=== PATIENT | female | born 2000 | race African-American/Black ===

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

== ENCOUNTER 2023-12-15 05:32 | Inpatient (IN) | payer MEDICAID ==
[2023-12-15] MEDS ORDERED: Sodium Chloride 0.9% 10 ML Syringe FLUSH PRN (06:01)
[2023-12-15] MEDS ORDERED: Sodium Chloride 0.9% 20 ML SDV IV PRN (06:01)
[2023-12-15] MEDS ORDERED: Sodium Chloride 0.9% 2.5 ML Syringe FLUSH PRN (06:01)
[2023-12-15] MEDS ORDERED: Oxytocin/0.9 % Sodium Chloride 30 UNIT/500 ML BAG IV SCH ×2 (06:15→19:30)
[2023-12-15] MEDS: Lactated Ringers 1,000 ML IV SCH (06:15)
[2023-12-15 06:36] LABS: HEMATOCRIT 40.1 % (37.0-47.0); HEMOGLOBIN 13.9 g/dL (12.0-16.0); MEAN CORPUSCULAR HEMOGLOBIN 31.2 pg (28.0-32.0); MEAN CORPUSCULAR HGB CONC 34.7 g/dL (32.0-36.0); MEAN CORPUSCULAR VOLUME 89.9 fL (83.0-99.0); MEAN PLATELET VOLUME 11.6 fL (9.4-12.3); PLATELET COUNT,PLT 182 K/uL (150-400); RED BLOOD CELL COUNT 4.46 M/uL (4.10-5.30); WHITE BLOOD CELL COUNT,WBC 5.97 K/uL (3.9-11.3)
[2023-12-15] MEDS ORDERED: fentaNYL 100 MCG/2 ML SDV ONE (06:54)
[2023-12-15] MEDS ORDERED: Ropivacaine 0.5% 5 MG/ML 30 ML SDV ONE (06:54)
[2023-12-15] MEDS ORDERED: Ketorolac 30 MG/ML SDV ONE (06:54)
[2023-12-15] MEDS ORDERED: Bupivacaine 0.25% 30 ML SDV ONE (06:54)
[2023-12-15] MEDS ORDERED: ceFAZolin 1 GM Vial ONE (06:54)
[2023-12-15] MEDS ORDERED: Oxytocin 10 Units/1 ML SDV ONE (06:54)
[2023-12-15] MEDS ORDERED: Ondansetron 4 MG/2 ML SDV ONE (06:54)
[2023-12-15] MEDS ORDERED: EPINEPHrine 1 MG/1 ML Amp ONE (06:54)
[2023-12-15] MEDS ORDERED: Morphine PF 10 MG/10 ML SDV ONE (06:55)
[2023-12-15] MEDS ORDERED: fentaNYL 100 MCG/2 ML SDV IVPUSH PRN (07:06)
[2023-12-15] MEDS ORDERED: droPERidol 5 MG/2 ML SDV IVPUSH PRN (07:06)
[2023-12-15] MEDS ORDERED: Metoclopramide 10 MG/2 ML SDV IVPUSH PRN (07:06)
[2023-12-15] MEDS ORDERED: Naloxone 0.4 MG/ML SDV IVPUSH PRN (07:06)
[2023-12-15] MEDS ORDERED: Ondansetron 4 MG/2 ML SDV IVPUSH PRN ×3 (07:06→19:22)
[2023-12-15] MEDS ORDERED: Acetaminophen/oxyCODONE 325-5 MG Tab PO PRN (07:06)
[2023-12-15] MEDS ORDERED: fentaNYL 50 MCG/ML SDV IVPUSH PRN (07:06)
[2023-12-15] MEDS ORDERED: ePHEDrine 50 MG/ML SDV IVPUSH PRN (07:06)
[2023-12-15] MEDS ORDERED: HYDROmorphone 1 MG/ML Syringe IVPUSH PRN (07:06)
[2023-12-15] MEDS ORDERED: Morphine 2 MG/ML SYRINGE IVPUSH PRN (07:06)
[2023-12-15] MEDS ORDERED: Albuterol 0.083% 2.5 MG/3 ML Neb Soln NEB PRN (07:06)
[2023-12-15] MEDS: ceFAZolin 2 GM in Sodium Chloride 0.9% 50 ML IV ONE (07:10)
[2023-12-15] MEDS: Citric Acid/Sodium Citrate Solution 30 ML Cup PO ONE (07:10)
[2023-12-15 08:45] LABS: AMPHETAMINES SCREEN, URINE NEGATIVE (CUTOFF=500); BARBITURATE SCREEN,URINE NEGATIVE (CUTOFF=200); BENZODIAZEPINES SCREEN,URINE NEGATIVE (CUTOFF=150); BUPRENORPHINE SCREEN,URINE NEGATIVE (CUTOFF=10); METHADONE SCREEN, URINE NEGATIVE (CUTOFF=200); METHAMPHETAMINES SCREEN, URINE NEGATIVE (CUTOFF=500); OXYCODONE SCREEN,URINE NEGATIVE (CUT0FF=100); PCP SCREEN,URINE NEGATIVE (CUTOFF=25); THC SCREEN,URINE 20 NG/ML NEGATIVE (CUTOFF=50)
[2023-12-15] MEDS ORDERED: Phenylephrine 1% 10 MG/ML SDV ONE (08:54)
[2023-12-15] MEDS: Acetaminophen 1,000 MG in Premix Bag 1 BAG IV SCH (10:05)
[2023-12-15] MEDS: diphenhydrAMINE 50 MG/ML SDV IVPUSH PRN (12:09)
[2023-12-15] MEDS: Ketorolac 30 MG/ML SDV IVPUSH SCH (16:04)
[2023-12-15] MEDS ORDERED: Lanolin 100% Cream 7 GM Tube TOP PRN (19:22)
[2023-12-15] MEDS ORDERED: Bisacodyl 10 MG Supp RECTAL PRN (19:22)
[2023-12-15] MEDS ORDERED: Methylergonovine 0.2 MG/1 ML Amp IM PRN (19:22)
[2023-12-15] MEDS ORDERED: Misoprostol 200 MCG Tab RECTAL PRN (19:22)
[2023-12-15] MEDS ORDERED: Oxytocin 10 Units/1 ML SDV IM PRN (19:22)
[2023-12-15] MEDS ORDERED: diphenhydrAMINE 50 MG/ML SDV IVPUSH PRN (19:22)
[2023-12-15] MEDS ORDERED: Lactated Ringers 1,000 ML IV SCH (19:30)
[2023-12-15] MEDS: Docusate Sodium 100 MG Cap PO SCH (21:12)
[2023-12-16 05:58] LABS: HEMATOCRIT 34.2 % (37.0-47.0); HEMOGLOBIN 11.8 g/dL (12.0-16.0)
[2023-12-16] MEDS: Ketorolac 30 MG/ML SDV IVPUSH SCH (06:14)
[2023-12-16] MEDS: Acetaminophen/oxyCODONE 325-5 MG Tab PO PRN ×2 (10:05→14:35)
[2023-12-16] MEDS: Ibuprofen 800 MG Tab PO PRN (13:07)
[2023-12-17] MEDS ORDERED: Ibuprofen 800 MG Tab PO PRN (01:30)
== END 2023-12-17 13:00 | disposition home or self-care (01) | DRG 788 ==
LOC: MW.OB 05:32
PROVIDERS: ADMIT Obstetrics & Gynecology Obstetrics; ATTEND Obstetrics & Gynecology Obstetrics
PROC: 10D00Z1 Extraction of Products of Conception, Low, Open Approach (ICD-10-PCS; principal; 2023-12-15 08:00)
DX: O34.211 Maternal care for low transverse scar from previous cesarean delivery (principal); O99.824 Streptococcus B carrier state complicating childbirth; Z37.0 Single live birth; Z3A.39 39 weeks gestation of pregnancy
CPT/HCPCS: 36415; 64488; 80305-QW; 85014; 85018; 85027; 86592; 86850; 86900; 86901; A9270-GY; J0131; J0171; J0665; J0690; J1100; J1200; J1885; J2274; J2371; J2405; J2590; J2795; J3010; J3490; J7120